=== PATIENT | female | born 1980 | race Caucasian/White ===

== ENCOUNTER 2016-08-04 12:34 | Emergency (ER) | payer MEDICARE ==
[2016-08-04] MEDS ORDERED: ASPIRIN 81 MG CHEW TAB ONE (13:18)
== END 2016-08-04 16:06 | disposition home or self-care (01) ==
LOC: ER 12:34
CPT/HCPCS: 36415; 71010; 80053; 82550; 83735; 84484; 85025; 85379; 85610; 85730; 93005